=== PATIENT | female | born 1975 | race Caucasian/White ===

== ENCOUNTER 2021-12-26 21:39 | Emergency (ER) | payer OTHER, SELFPAY ==
[2021-12-26 22:24] VITALS: BP 110/66; PULSE 86; RESP 18; TEMP 36.8; O2SAT 97; BMI 30.7
[2021-12-26 22:38] LABS: Appearance Urine HAZY; Color Urine YELLOW; Glucose Urine UA NEG (NEG); Leukocyte Esterase Urine 1+ (NEG); Nitrite Urine NEG (NEG); Specific Gravity - Urine 1.015 (1.005-1.025); UACC Culture Trigger YES; Urine Blood 3+ (NEG); Urine Ketones NEG (NEG); Urine Protein 2+ MG/DL (NEG-TRACE)
[2021-12-26 22:48] LABS: Bacteria Urine 2+ /LPF; Squamous Epithelial Cell Urine 1+ /LPF
--- NOTE | 2021-12-26 23:32 | ED_ITS ---
HPI - Female Genitourinary General Chief complaint: Urogenital-Female Stated complaint: blood in urine Time Seen by Provider: 12/26/21 23:31 Source: patient Mode of arrival: ambulatory Limitations: no limitations History of Present Illness HPI Narrative: 46-year-old female no significant medical history presents to the emergency department with dysuria, hematuria and suprapubic discomfort x1 day. Patient tells me that the dysuria occurs mostly at the end of the stream. She tells me that there is not a lot of blood in her urine however she did note a little bit of blood. She has some discomfort to her suprapubic region, nonradiating she describes as a pressure/discomfort. No history of kidney stones. No nausea or vomiting. She denies fevers or chills. She has a partial hysterectomy. No concerns for STDs or STIs MD elicited complaint: dysuria Onset (ago): day(s) (1) Severity: mild Female Urogenital Radiation: Suprapubic Quality of pain: aching and other (pressure) Consistency: constant Vaginal discharge: none Vaginal bleeding: none Urinary symptoms: Dysuria Exacerbating factors: none Relieving factors: none Associated symptoms: denies other symptoms Treatment prior to arrival: none Patient : No Related Data Previous Rx's Medication Instructions Recorded nitrofurantoin 100 mg PO BID 7 Days #14 cap 12/26/21 monohydrate/macrocrystals 100 mg capsule (Macrobid) phenazopyridine 100 mg tablet 200 mg PO TID 2 Days #6 tab 12/26/21 (Pyridium) Allergies Allergy/AdvReac Type Severity Reaction Status Date / Time Penicillins [PENICILLINS] Allergy Unknown RASH Verified 12/26/21 22:23 Review of Systems Review of Systems: Constitutional : No Weight loss, No Fever, No Chills, No Fatigue, No Malaise ENT/Mouth : No sore throat, No Rhinorrhea Eyes: No Eye Pain, No Swelling, No Redness Cardiovascular : No Chest Pain, No SOB, No Dyspnea on Exertion, No Orthopnea, No Edema, No Palpitations Respiratory : No Cough, No Sputum, No Wheezing Gastrointestinal : No Nausea, No Vomiting, No Diarrhea, No Constipation, No abdominal Pain, No Hematochezia, No Melena Genitourinary : + Dysuria, No Urinary Frequency, + Hematuria, Musculoskeletal : No joint pain, No Myalgias, No Joint Swelling Skin : No Skin Lesions, No rash Neuro : No Weakness, No Numbness, No Dizziness, No Headache Psych : No Anxiety/Panic, No Depression All other systems reviewed and are negative Yes all other systems are reviewed and are negative PENDING SALE TO [facility] Past Medical History Attestation statement: The following information was validated with the patient. Source: old records reviewed and nursing notes reviewed Social History Social History Advance Directives: No Advance Directives Information Provided: No Patient : No Physical Exam Vital Signs: Vital Signs: Last Vital Signs Temp 98.3 F 12/26/21 22:24 Pulse 86 12/26/21 22:24 Resp 18 12/26/21 22:24 BP 110/66 12/26/21 22:24 Pulse Ox 97 12/26/21 22:24 BMI result Body Mass Index 30.7 VSS Appearance: Alert.? Oriented X3.? No acute distress.? Head: Normocephalic, atraumatic, no step-offs or deformities Eyes: Pupils equal, round and reactive to light.? ENT: Pharynx normal.? Neck: Normal inspection.? Neck supple.? CVS: Normal heart rate and rhythm.? Pulses normal.? Respiratory: No respiratory distress.? Breath sounds normal.? Abdomen: Soft and + discomfort to suprapubic region. Skin: Skin warm and dry.? Normal skin color.? Normal skin turgor.? Extremities: No lower extremity edema.? No calf ttp. 5/5 strength to bilateral upper and lower extremities Back: No midline tenderness, no C-spine tenderness, full range of motion, no CVA tenderness bilaterally Neuro: Oriented X 3.? No motor deficit.? No sensory deficit. CN 2-12 intact Course Reevaluation(s) Reevaluation #1: Urine positive for protein, blood, leukocyte esterases. Due to patient's symptoms, and suprapubic discomfort will treat for cystitis. Advised to return with new or worsening symptoms. And to follow up with Urology. Comfortable with discharge home Time: 23:49 MDM - Female Genitourinary MDM Narrative Medical decision making narrative: 2333 46 yo f no significant pmhx presents with dysuria, suprapubic pressure, hematuria X1 days. No history of kidney stones. Has a partial hysterectomy. No concerns for STD or STIs. Physical examination benign. No CVA tenderness. RRR. Lungs clear. Discomfort to the suprapubic region. Vital signs stable. Patient's history and physical exam consistent with cystitis. Unlikely that this is pyelonephritis. Very low suspicion for appendicitis or cholecystitis. Unlikely nephrolithiasis. Plan UA. Medical Records Attestation: I reviewed the patient's medical records. Lab Data Attestation: I reviewed the patient's lab results. Labs: Lab Results 12/26/21 Range/Units 22:27 Urine Color YELLOW Urine Appearance HAZY Urine pH 8.0 (5.0-8.0) Ur Specific [place] 1.015 (1.005-1.025) Urine Protein 2+ H (NEG-TRACE) MG/DL Urine Glucose (UA) NEG (NEG) MG/DL Urine Ketones NEG (NEG) MG/DL Urine Blood 3+ H (NEG) Urine Nitrite NEG (NEG) Ur Leukocyte Esterase 1+ H (NEG) Urine RBC 15-29 H (0) /HPF Urine WBC 1-4 (0-4) /HPF Ur Squamous Epith Cells 1+ /LPF Urine Bacteria 2+ /LPF Critical Care Time Critical Care Time Critical Care Time: No Discharge Plan Discharge Clinical Impression: Cystitis Patient Disposition: Home, Self-Care Instructions: Urinary Tract Infection in Women (DC) Additional Instructions: Take your medications as prescribed. If you were prescribed antibiotics today, it is important that you take your medication to their entirety, do not skip any doses, do not finish them early. Pyridium is a medication that is sent to you for symptomatic relief, this can make your urine a bright orange collar. Follow-up with your primary care provider this week. Follow-up with Urology if symptoms worsen. Return to the emergency department with new or worsening symptoms. Such as chest pain, shortness of breath, abdominal pain, back pain, nausea, vomiting, weakness, lethargy, headache, dizziness. In case of emergency call 911 Prescriptions: New nitrofurantoin monohyd/m-cryst [Macrobid] 100 mg capsule 100 mg PO BID 7 Days Qty: 14 0RF Rx Instructions: must administer with a meal/food phenazopyridine [Pyridium] 100 mg tablet 200 mg PO TID 2 Days Qty: 6 0RF Referrals: Jahaira Wu MD [Primary Care Provider] - 2 days Jesse Gooden III, MD [Physician] - 2 days Stand Alone Forms: Work/School Release
[2021-12-26] MEDS: Nitrofurantoin Monohyd/M-Cryst 100 MG CAPSULE PO (23:52)
== END 2021-12-27 00:01 | disposition home or self-care (01) ==
PROVIDERS: Emergency Provider Internal Medicine; PCP Internal Medicine
DX: N30.91 Cystitis, unspecified with hematuria (principal); R31.9 Hematuria, unspecified; R30.0 Dysuria; Z79.899 Other long term (current) drug therapy
CPT/HCPCS: 81001; 87086; 87147; 99283

== ENCOUNTER → 2022-01-18 13:48 | Outpatient (BNVA) | payer OTHER, SELFPAY | PROVIDERS: PCP Internal Medicine | DX: Z13.89 Encounter for screening for other disorder (principal) ==